=== PATIENT | male | born 1980 | race Caucasian/White ===

== ENCOUNTER 2017-07-28 19:02 | Emergency (ER) | payer SELFPAY ==
[~2017-07-28] VITALS: Ht 182.9 cm; Wt 81.6 kg
[2017-07-28 19:18] VITALS: Ht 182.9 cm; Wt 81.6 kg
[2017-07-28 20:20] VITALS: BP 106/71
== END 2017-07-28 19:40 | disposition left against medical advice (07) ==
LOC: D.ER 19:02
DX: F10.239 Alcohol dependence with withdrawal, unspecified (principal); F17.200 Nicotine dependence, unspecified, uncomplicated